=== PATIENT | female | born 1930 | race Caucasian/White ===

== ENCOUNTER → 2016-11-22 | Outpatient (CLI) | payer MEDICARE, OTHER ==
[~2016-11-22] MED LIST: CHOL4POW3 PO; LISI40TA PO; LOVA10TA PO; OCUVTAB4 PO; PNEU13P IM; ZOSTINJ SQ
[2016-11-22 11:33] LABS: C. DIFF EPI 027 PRESUMPTIVE NEGATIVE (NEGATIVE)
== END ==
LOC: CLAB 09:21
PROVIDERS: ATTEND Family Medicine
DX: A09 Infectious gastroenteritis and colitis, unspecified (principal)
CPT/HCPCS: 87493